=== PATIENT | female | born 1960 | race Caucasian/White ===

== ENCOUNTER → 2017-10-31 | Outpatient (CLI) | payer BC ==
--- NOTE | 2017-10-31 13:08 | RAD ---
EXAM: Head CT without contrast. HISTORY: Migraines. TECHNIQUE: Computed tomographic images of the head were obtained without contrast. *One or more of the following individualized dose reduction techniques were utilized for this examination: 1. Automated exposure control. 2. Adjustment of the mA and/or kV according to patient size. 3. Use of iterative reconstruction technique. COMPARISON: None. FINDINGS: There is no acute or subacute extra-axial or intraparenchymal hemorrhage. There is no mass effect or midline shift. There is no hydrocephalus. There are areas of decreased attenuation within the cerebral white matter, nonspecific and likely related to chronic small vessel disease. The orbits are unremarkable. There is evidence of prior maxillary antrostomy/uncinectomy surgery. The mastoid air cells are clear. No suspicious calvarial lesion is seen. IMPRESSION: No acute intracranial findings. Electronically signed by: Teresa Titus MD (10/31/2017 1:05 PM) [place] [id number]
== END | disposition home or self-care (01) ==
LOC: CT 12:35
PROVIDERS: ATTEND Physician Assistant Medical
DX: G43.909 Migraine, unspecified, not intractable, without status migrainosus (principal)
CPT/HCPCS: 70450